=== PATIENT | female | born 1975 | race Caucasian/White ===

== ENCOUNTER 2017-04-17 12:29 | Outpatient (CLI) | payer BC | END 2017-04-17 12:30 | disposition home or self-care (01) | LOC: BICMAMMO 12:29 | PROVIDERS: ATTEND Family Medicine | DX: Z12.31 Encounter for screening mammogram for malignant neoplasm of breast (principal) | CPT/HCPCS: 77063; 77067 ==

== ENCOUNTER 2017-06-11 11:48 | Outpatient (CLI) | payer BC | END 2017-06-11 11:49 | disposition home or self-care (01) | LOC: BICRAD 11:48 | PROVIDERS: ATTEND Family Medicine | DX: M79.672 Pain in left foot (principal) ==

== ENCOUNTER 2018-05-25 10:46 | Outpatient (CLI) | payer BC ==
--- NOTE | 2018-05-25 11:19 | MMO ---
Bilateral MAMMO Bilat Screen [facility]. CLINICAL HISTORY: Patient is 43 years old and is seen for screening. The patient has no family history of breast cancer. The patient has no personal history of cancer. VIEWS: The views performed were: bilateral craniocaudal with tomosynthesis and bilateral mediolateral oblique with tomosynthesis. FILMS COMPARED: The present examination has been compared to prior imaging studies performed at [facility] on 07/20/2013 and 04/17/2017. MAMMOGRAM FINDINGS: The breasts are heterogeneously dense, which could obscure a lesion on mammography. There are no suspicious masses, suspicious calcifications, or new areas of architectural distortion. IMPRESSION: THERE IS NO MAMMOGRAPHIC EVIDENCE OF MALIGNANCY. A ROUTINE FOLLOW-UP MAMMOGRAM IN 1 YEAR IS RECOMMENDED. THE RESULTS OF THIS EXAM WERE SENT TO THE PATIENT. ACR BI-RADS Category 1 - Negative MAMMOGRAPHY NOTE: 1. A negative mammogram report should not delay a biopsy if a dominant of clinically suspicious mass is present. 2. Approximately 10% to 15% of breast cancers are not detected by mammography. 3. Adenosis and dense breasts may obscure an underlying neoplasm.
== END 2018-05-25 10:47 | disposition home or self-care (01) ==
LOC: BICMAMMO 10:46
PROVIDERS: ATTEND Family Medicine
DX: Z12.31 Encounter for screening mammogram for malignant neoplasm of breast (principal)
CPT/HCPCS: 77063; 77067

== ENCOUNTER 2019-06-23 00:30 | Emergency (ER) | payer BC ==
[2019-06-23 01:04] LABS: #Lymphocytes 2.3 thou/uL (1.20-3.40); #Monocytes 0.6 thou/uL (0.11-0.59); #Neutrophils 6.5 thou/uL (1.40-6.50); %Basophils 0.3 % (0.0-1.0); %Eosinophils 0.4 % (0.0-10.0); %Lymphocytes 23.9 % (21.0-51.0); %Monocytes 6.5 % (0.0-10.0); %Neutrophils 68.9 % (42.0-75.0); Hemoglobin 12.2 g/dL (12.0-16.0); Mean Corpuscular Hemoglobin 31.4 pg (27.0-31.0); Mean Corpuscular Volume 92.4 fL (78.0-98.0); Mean Platelet Volume 8.2 fL (7.4-10.4); Platelet Count 174 thou/uL (130-400); RBC Distribution Width 11.4 % (11.5-14.5); Red Blood Cell (RBC) Count 3.89 mill/uL (4.20-5.40); White Blood Cell (WBC) Count 9.5 thou/uL (4.8-10.8)
[2019-06-23 01:38] LABS: Bilirubin Negative (Negative); Blood, Urine Negative (Negative); Clarity Clear (Clear); Glucose, Urine (Dipstick) Normal (Negative); Leukocyte Negative Leu/uL (Negative); Nitrite Negative (Negative); Protein, Urine (Dipstick) Negative (Neg-Trace); Urobilinogen Normal mg/dL (Less than 2)
[2019-06-23 02:06] LABS: ALT (SGPT) 69 U/L (8-55); AST (SGOT) 122 U/L (5-34); Alkaline Phosphatase 105 U/L (40-110); BUN (Urea Nitrogen) 18 mg/dL (7.0-18.7); Bilirubin, Total 0.4 mg/dL (0.2-1.2); Calc. Creatinine Clearance 0 mL/min (70-130); Calcium 8.6 mg/dL (7.8-10.44); Carbon Dioxide 22 mmol/L (22-29); Chloride 107 mmol/L (98-107); Estimated GFR-MDRD Greater than 90; Globulin 1.9 g/dL (2.4-3.5); Glucose 102 mg/dL (70-105); Lipase 27 U/L (8-78); Potassium 3.3 mmol/L (3.5-5.1); Protein, Total 5.9 g/dL (6.0-8.3); Sodium 139 mmol/L (136-145)
[2019-06-23 02:09] LABS: Anion Gap 13 mmol/L (10-20)
[2019-06-23] MEDS ORDERED: Ketorolac Tromethamine 30 MG/ML VIAL ONE (03:14)
--- NOTE | 2019-06-23 07:58 | ULT ---
PRELIMINARY REPORT/[facility]/EMERGENCY AFTER HOURS PROCEDURE EXAM: US Abdomen Limited, Right Upper Quadrant. CLINICAL HISTORY: RUQ pain that radiates to back, constipation TECHNIQUE: Real-time ultrasound of the right upper quadrant with image documentation. COMPARISON: None provided. FINDINGS: LIVER: Unremarkable. GALLBLADDER: Gallbladder is distended with fluid and contains one large and small shadowing. The gal lbladder wall is not thickened. No pericholecystic fluid. The sonographic Paniagua sign is positive. COMMON BILE DUCT: Duct is dilated measuring 5 mm or the common duct is borderline in size measuring 5 mm. PANCREAS: Unremarkable as visualized. The distal pancreas is obscured by overlying bowel gas. RIGHT KIDNEY: Unremarkable. No hydronephrosis. IMPRESSION: Sludge and small stones within the gallbladder. Sonographic Paniagua sign is positive. No gallbladder wall thickening or pericholecystic fluid. Findings are indeterminate for acute cholecys titis and further evaluation with nuclear HIDA medicine scan may be obtained as clinically indicated. ELECTRONICALLY SIGNED BY: Claudine Moreau MD June 23, 2019 3:00:54 AM CDT FINAL REPORT RIGHT UPPER QUADRANT ULTRASOUND: I agree with the preliminary report given by Dr. Claudine Moreau of [facility]. POS: [facility]
--- NOTE | 2019-06-23 08:08 | RAD ---
PORTABLE CHEST 1 VIEW: DATE: 06/23/2019. TIME: 12:21 AM. HISTORY: Chest pain. FINDINGS: The heart size is normal. The lungs are expanded without focal areas of consolidation, pneumothorace s, or pleural effusions. IMPRESSION: No acute process. POS: CHELE
--- NOTE | 2019-06-25 13:23 | EKG ---
Test Reason : Blood Pressure : / mmHG Vent. Rate : 068 BPM Atrial Rate : 068 BPM P-R Int : 180 ms QRS Dur : 072 ms QT Int : 402 ms P-R-T Axes : 027 070 047 degrees QTc Int : 427 ms Normal sinus rhythm Confirmed by NAVYA EDMOND ([id number]), editorial assistant MEAGHAN BAKER ([id number]) on 06/25/2019 1:22:58 PM Referred By: Confirmed By:NAVYA EDMOND
== END 2019-06-23 03:27 | disposition home or self-care (01) ==
LOC: ERS 00:30
DX: K80.20 Calculus of gallbladder without cholecystitis without obstruction (principal)
CPT/HCPCS: 36415; 71045; 76705; 80053; 81003; 83690; 84484; 85025; 93005; 96374; J1885

== ENCOUNTER 2019-07-05 07:53 | Outpatient (CLI) | payer BC, OTHER ==
[2019-07-05 12:57] LABS: #Monocytes 0.6 thou/uL (0.11-0.59); #Neutrophils 4.6 thou/uL (1.40-6.50); %Basophils 0.2 % (0.0-1.0); %Eosinophils 0.4 % (0.0-10.0); %Lymphocytes 27.1 % (21.0-51.0); %Monocytes 8.6 % (0.0-10.0); %Neutrophils 63.7 % (42.0-75.0); Hemoglobin 13.7 g/dL (12.0-16.0); Mean Corpuscular HGB CONC 32.8 g/dL (32.0-36.0); Mean Corpuscular Hemoglobin 30.4 pg (27.0-31.0); Mean Corpuscular Volume 92.6 fL (78.0-98.0); Mean Platelet Volume 8.5 fL (7.4-10.4); Platelet Count 185 thou/uL (130-400); RBC Distribution Width 11.4 % (11.5-14.5); Red Blood Cell (RBC) Count 4.51 mill/uL (4.20-5.40); White Blood Cell (WBC) Count 7.2 thou/uL (4.8-10.8)
[2019-07-05 13:19] LABS: ALT (SGPT) 31 U/L (8-55); AST (SGOT) 17 U/L (5-34); Albumin 4.2 g/dL (3.5-5.0); Alkaline Phosphatase 90 U/L (40-110); Anion Gap 12 mmol/L (10-20); BUN (Urea Nitrogen) 13 mg/dL (7.0-18.7); Bilirubin, Total 0.5 mg/dL (0.2-1.2); Calc. Creatinine Clearance 0 mL/min (70-130); Calcium 9.1 mg/dL (7.8-10.44); Carbon Dioxide 25 mmol/L (22-29); Chloride 108 mmol/L (98-107); Estimated GFR-MDRD 83; Globulin 2.4 g/dL (2.4-3.5); Glucose 84 mg/dL (70-105); Potassium 4.5 mmol/L (3.5-5.1); Protein, Total 6.6 g/dL (6.0-8.3); Sodium 140 mmol/L (136-145)
[2019-07-05 13:22] LABS: BHCG - Serum Negative (NEGATIVE); Pregs Control Background? CLEAR/WHITE (CLR/WHITE); Pregs Control Bar Appear? YES (CONTROL BAR)
[2019-07-06 10:58] LABS: SARS-CoV-2 MS2 Positive; SARS-CoV-2 N Gene Negative; SARS-CoV-2 S Gene Negative; SARS-CoV-2 orf1ab Negative
== END 2019-07-05 07:54 | disposition home or self-care (01) ==
LOC: LABBT 07:53
PROVIDERS: ATTEND Specialist
DX: Z01.812 Encounter for preprocedural laboratory examination (principal); Z11.59 Encounter for screening for other viral diseases; K80.20 Calculus of gallbladder without cholecystitis without obstruction; K40.90 Unilateral inguinal hernia, without obstruction or gangrene, not specified as recurrent
CPT/HCPCS: 80053; 84703; 85025; 87635; U0003

== ENCOUNTER 2019-07-07 08:31 | Day surgery (SDC) | payer BC ==
[2019-07-05 11:36] VITALS: BMI 19.5
[2019-07-07] MEDS ORDERED: Acetaminophen 500 MG TAB ONE (09:03)
[2019-07-07] MEDS ORDERED: Ketorolac Tromethamine 30 MG/ML VIAL ONE (09:03)
[2019-07-07] MEDS ORDERED: Fentanyl 250 MCG/5 ML VIAL ONE (11:20)
[2019-07-07] MEDS ORDERED: Lidocaine 1% w/Epinephrine 1:100K 20 ML VIAL ONE (11:21)
[2019-07-07] MEDS ORDERED: Bupivacaine 0.25% HCL 30 ML VIAL ONE (11:21)
[2019-07-07] MEDS ORDERED: Fentanyl 100 MCG/2 ML VIAL ONE ×2 (13:48→14:13)
[2019-07-07] MEDS ORDERED: Rocuronium Bromide 10 MG/ML (10ML VIAL) ONE (13:51)
[2019-07-07] MEDS ORDERED: PHENYLEPHRINE-NS 100 MCG/ML 10 ML SYRINGE ONE (13:51)
[2019-07-07] MEDS ORDERED: Glycopyrrolate 0.2 MG/ML 5 ML SYRINGE ONE (13:51)
[2019-07-07] MEDS ORDERED: Lidocaine 1% PF 5 ML VIAL ONE (13:51)
[2019-07-07] MEDS ORDERED: Dexamethasone 20 MG/5 ML VIAL ONE (13:51)
[2019-07-07] MEDS ORDERED: PROPOFOL 200 MG/20 ML VIAL ONE (13:51)
--- NOTE | 2019-07-08 12:04 | OP ---
DATE OF PROCEDURE: 07/07/2019 PREOPERATIVE DIAGNOSES: Cholelithiasis, left inguinal hernia. POSTOPERATIVE DIAGNOSES: Cholelithiasis, left inguinal hernia. PROCEDURES PERFORMED: Robot-assisted left inguinal hernia repair with mesh using a medium 3D max mesh patch, laparoscopic-assisted cholecystectomy. ANESTHESIA: General endotracheal. INDICATIONS: The patient is a 44-year-old white female. She presents with symptomatic cholelithiasis. She is also recognized of the left inguinal hernia. She has a history of right inguinal hernia repair. She is taken to the operating room at this time for repair of both. DESCRIPTION OF OPERATION: Informed consent was obtained. The patient was taken to the operating room, where general endotracheal anesthesia was obtained with the patient is supine position. Glaser catheter was placed. Abdomen was prepped with ChloraPrep and draped in sterile fashion. Local anesthetic was infiltrated and a 12-mm supraumbilical incision was created through which a Veress needle was passed into the peritoneal cavity and pneumoperitoneum was established using carbon dioxide to pressure of 15 mmHg. A 12-mm trocar port was passed through the same incision and robotic camera passed this port. Under direct vision, I placed two additional 8 mm robotic ports, one in the left paramedian and one in the right paramedian area. I have placed a final 5-mm assist port in the right upper quadrant. The patient was placed in Trendelenburg position and attention was turned to the pelvis. The robot was docked and the operation was continued from the robotic console. There was no evidence of a right inguinal hernia. On the left, there was a small defect, what appeared to be the direct space. A transverse peritoneal incision was created extending to the median umbilical ligament. The peritoneum was dissected in the preperitoneal space. The round ligament was identified and divided. The preperitoneal space was widely dissected. There was a relatively small direct defect. The indirect space was dissected and was noted to be a cord lipoma protruding through this, which was dissected and removed. A medium 3D max mesh patch was obtained and placed in the preperitoneal space. It was secured in place to the pubic tubercle medially and to the anterior abdominal wall lateral to the vessels. This sutures were placed with 3-0 Vicryl. The paratenon was then closed snugly with a running 3-0 Stratafix suture. Attention was then turned to the gallbladder. The patient was undocked from the robot and position was changed and placed in reverse Trendelenburg position. The robot was re-docked. The gallbladder was grasped and retracted in cephalad direction. The infundibulum was grasped, retracted laterally and inferiorly. Careful dissection was carried out to identify the cystic duct and cystic artery. These were each clearly visualized, nondilated, noninflamed. They were each divided between clips placing one on each side of the structure before it was divided. The gallbladder was dissected uneventfully from the gallbladder fossa without bile leak or bleeding. It was grasped and removed through the 12-mm port site. Right upper quadrant was irrigated and the irrigant was aspirated. There was absolutely no bleeding. There has been no bile leak at any time. All ports and instruments were removed under direct vision. The fascial defect at the 12-mm site was closed with 0 Vicryl suture using a GraNee needle. Pneumoperitoneum was carefully evacuated. The skin edges were approximated with 4-0 Monocryl subcuticular suture. Dermabond was placed externally. There were no complications. The patient tolerated the procedure well and was taken to recovery room in stable condition. Job ID: [id number]
== END 2019-07-07 16:28 | disposition home or self-care (01) ==
LOC: SDC 08:31
PROVIDERS: ATTEND Specialist
PROC: 0FT44ZZ Resection of Gallbladder, Percutaneous Endoscopic Approach (ICD-10-PCS; principal; 2019-07-07)
PROC: 0YU64JZ Supplement Left Inguinal Region with Synthetic Substitute, Percutaneous Endoscopic Approach (ICD-10-PCS; principal; 2019-07-07)
DX: K80.10 Calculus of gallbladder with chronic cholecystitis without obstruction (principal); K40.90 Unilateral inguinal hernia, without obstruction or gangrene, not specified as recurrent; Z79.899 Other long term (current) drug therapy; Z88.5 Allergy status to narcotic agent; Z88.6 Allergy status to analgesic agent
CPT/HCPCS: 88304; C1781; J0690; J1100; J1885; J2001; J2704; J3010; S0020

== ENCOUNTER 2019-09-01 11:11 | Outpatient (CLI) | payer BC ==
--- NOTE | 2019-09-01 13:23 | MMO ---
Bilateral MAMMO Bilat Screen [facility]. CLINICAL HISTORY: Patient is 44 years old and is seen for screening. The patient has no family history of breast cancer. The patient has no personal history of cancer. VIEWS: The views performed were: bilateral craniocaudal with tomosynthesis and bilateral mediolateral oblique with tomosynthesis. FILMS COMPARED: The present examination has been compared to prior imaging studies performed at [facility] on 07/20/2013, 04/17/2017 and 05/25/2018. This study has been interpreted with the assistance of computer-aided detection. MAMMOGRAM FINDINGS: The breasts are heterogeneously dense, which could obscure a lesion on mammography. There are no suspicious masses, suspicious calcifications, or new areas of architectural distortion. IMPRESSION: THERE IS NO MAMMOGRAPHIC EVIDENCE OF MALIGNANCY. A ROUTINE FOLLOW-UP MAMMOGRAM IN 1 YEAR IS RECOMMENDED. THE RESULTS OF THIS EXAM WERE SENT TO THE PATIENT. ACR BI-RADS Category 1 - Negative MAMMOGRAPHY NOTE: 1. A negative mammogram report should not delay a biopsy if a dominant of clinically suspicious mass is present. 2. Approximately 10% to 15% of breast cancers are not detected by mammography. 3. Adenosis and dense breasts may obscure an underlying neoplasm. Reported by: GRETTA HAN MD Electonically Signed: [id number]
== END 2019-09-01 11:12 | disposition home or self-care (01) ==
LOC: BICMAMMO 11:11
PROVIDERS: ATTEND Family Medicine
DX: Z12.31 Encounter for screening mammogram for malignant neoplasm of breast (principal)
CPT/HCPCS: 77063; 77067

== ENCOUNTER 2021-06-17 11:37 | Outpatient (CLI) | payer BC | END 2021-06-17 11:38 | disposition home or self-care (01) | LOC: BICMAMMO 11:37 | PROVIDERS: ATTEND Family Medicine | DX: Z12.31 Encounter for screening mammogram for malignant neoplasm of breast (principal) | CPT/HCPCS: 77063; 77067 ==

== ENCOUNTER 2022-07-23 12:43 | Outpatient (CLI) | payer BC | END 2022-07-23 12:44 | disposition home or self-care (01) | LOC: BICMAMMO 12:43 | PROVIDERS: ATTEND Family Medicine | DX: Z12.31 Encounter for screening mammogram for malignant neoplasm of breast (principal) | CPT/HCPCS: 77063; 77067 ==

== ENCOUNTER 2023-09-30 12:26 | Outpatient (CLI) | payer BC | END 2023-09-30 12:27 | disposition home or self-care (01) | LOC: BICMAMMO 12:26 | PROVIDERS: ATTEND Family Medicine | DX: Z12.31 Encounter for screening mammogram for malignant neoplasm of breast (principal) | CPT/HCPCS: 77063; 77067 ==